=== PATIENT | female | born 1975 | race Caucasian/White ===

== ENCOUNTER 2020-09-14 14:45 | Emergency (ER) | payer OTHER ==
[2020-09-14 15:08] LABS: BILIRUBIN,URINE NEGATIVE (NEGATIVE); CLARITY,URINE CLEAR (CLEAR); GLUCOSE, URINE (UA) NEGATIVE (NEGATIVE); KETONES,URINE (UA) NEGATIVE (NEGATIVE); LEUKOCYTE ESTERASE, URINE NEGATIVE (NEGATIVE); NITRITE,URINE NEGATIVE (NEGATIVE); OCCULT BLOOD,URINE LARGE (NEGATIVE); PROTEIN,URINE NEGATIVE (NEGATIVE); UROBILINOGEN,URINE 0.2 (NORMAL) E.U./dL (NORMAL)
[2020-09-14 15:09] LABS: HCG UR QUAL NEGATIVE
[2020-09-14 15:20] LABS: BACTERIA,URINE Few /HPF (None Seen); CASTS, URINE 0-2 Hyaline Casts /LPF; EPITHELIAL CELLS,UR RARE Transitional /HPF (<= Few); MUCUS,URINE Marked Strands; RBC,URINE TNTC /HPF (0-5); SQUAMOUS EPITHELIAL CELL,UR FEW Squamous (<= Few); YEAST,URINE PRESENT
--- NOTE | 2020-09-14 15:27 | ED Physician Documentation ---
History of Present Illness - Stated complaint Stated Complaint: ABD PX - Chief complaint Chief Complaint: Abd Pain - Additonal information Additional information: 45-year-old female presents emergency department for acute left-sided belly kati n. Began in the left flank and migrated down to the pelvis. It was sharp unrelenting and caused her to cry. By the time she arrived to the emergency department the pain is mostly subsided. No fevers no vomiting. Positive nausea. No changes in bowel or bladder habits. pt reports a warm feeling inher bladder and urgency without dysuria She does report a history of remote exploratory surgery about 15 years ago which resulted in findings of a small bowel infection. since then she often has periumbilical pain as well as swelling in her abdomen with valsalva. her pcp is evaluating for a "hernia" Review of Systems Constitutional: reports: Reviewed and negative Ears: reports: Reviewed and negative Nose: reports: Reviewed and negative Throat: reports: Reviewed and negative Cardiac: reports: Reviewed and negative Respiratory: reports: Reviewed and negative GI: reports: Abdominal Pain, Nausea. denies: Vomiting, Constipation, Diarrhea, Hematemesis, Bloody / black stool : reports: Reviewed and negative Skin: reports: Reviewed and negative Musculoskeletal: reports: Reviewed and negative Neurologic: reports: Reviewed and negative PD PAST MEDICAL HISTORY - Past Medical History Past Medical History: Yes Endocrine/Autoimmune: Type 2 diabetes - Past Surgical History Past Surgical History: Yes General: Other - Present Medications Home Medications: Ambulatory Orders Medication Instructions Recorded Confirmed Ibuprofen [Motrin] 600 mg PO Q6H PRN #30 tab 09/14/20 Lisdexamfetamine Dimesylate 1 tab PO DAILY 09/14/20 09/14/20 [Vyvanse] buPROPion HCL [Bupropion HCl Sr] 1 tab PO DAILY 09/14/20 09/14/20 - Allergies Allergies/Adverse Reactions: Allergies Allergy/AdvReac Type Severity Reaction Status Date / Time Sulfa (Sulfonamide Allergy Rash Verified 09/14/20 14:52 Antibiotics) - Social History Does the pt smoke?: No Smoking Status: Never smoker Does the pt drink ETOH?: No Does the pt have substance abuse?: No Substance Use and Type: Marijuana - Immunizations Immunizations are current?: Yes PD ED PE NORMAL - General General: Alert and oriented X 3, No acute distress - HEENT HEENT: PERRL - Cardiac Cardiac: RRR, No murmur - Respiratory Respiratory: Clear bilaterally - Abdomen Abdomen: Normal bowel sounds, Soft, Non tender, Non distended, Other (midlien vertical hernia appreciated with valsalva) - Back Back: No CVA TTP Results - Vitals Vitals: Vital Signs - 24 hr 09/14/20 09/14/20 09/14/20 14:50 15:28 16:03 Temperature 36.3 C L Heart Rate 90 87 93 Respiratory 20 16 16 Rate Blood Pressure 149/95 H 142/90 H 136/83 H O2 Saturation 99 97 98 Oxygen O2 Source Room air - Labs Labs: Laboratory Tests 09/14/20 09/14/20 09/14/20 14:52 15:23 15:23 WBC 12.6 H RBC 5.02 Hgb 13.8 Hct 41.7 MCV 83.1 MCH 27.5 MCHC 33.1 RDW 13.5 Plt Count 371 MPV 8.4 Neut # (Auto) 9.7 H Lymph # (Auto) 2.2 [place] # (Auto) 0.5 Eos # (Auto) 0.1 Baso # (Auto) 0.1 Absolute Nucleated RBC 0.00 Nucleated RBC % 0.0 Sodium 135 Potassium 3.9 Chloride 100 L Carbon Dioxide 25 Anion Gap 10.0 BUN 14 Creatinine 0.7 Estimated GFR (MDRD) 90 Glucose 227 H Calcium 9.9 Total Bilirubin 0.6 AST 14 ALT 18 Alkaline Phosphatase 83 Total Protein 7.6 Albumin 4.4 Globulin 3.2 Albumin/Globulin Ratio 1.4 Lipase 25 Urine Color YELLOW Urine Clarity CLEAR Urine pH 6.0 Ur Specific [place] 1.025 Urine Protein NEGATIVE Urine Glucose (UA) NEGATIVE Urine Ketones NEGATIVE Urine Occult Blood LARGE H Urine Nitrite NEGATIVE Urine Bilirubin NEGATIVE Urine Urobilinogen 0.2 (NORMAL) Ur Leukocyte Esterase NEGATIVE Urine RBC TNTC H Urine WBC 0-3 Ur Epithelial Cells RARE Transitional Ur Squamous Epith Cells FEW Squamous Urine Bacteria Few Urine Casts 0-2 Hyaline Casts Urine Mucus Marked Strands Urine Yeast PRESENT Ur Microscopic Review INDICATED Urine Culture Comments NOT INDICATED Urine HCG, Qual NEGATIVE - Rads (name of study) CT abd/pelvis Radiology: Final report received (3 mm mildly obstructing left distal ureter stone visualized in the left UVJ. Mild associated hydroureter with minimal periureteral stranding. Nonobstructing bilateral nephroliths. 4.1 cm fat- containing umbilical hernia. 4 mm right middle lobe lung nodule.) PD MEDICAL DECISION MAKING - ED course Complexity details: reviewed results, re-evaluated patient, considered differential, d/w patient ED course: 45-year-old female presents the emergency department for evaluation of acute left-sided abdominal pain that radiated from flank to pelvic area. Does have findings of hematuria. Normal renal function. mild leukocytosis. liekly marginalization or stress reaction. History is most suspicious for acute renal colic. Non-contrast CT of the abdomen is pending. CT of the abdomen does show a mildly obstructing left UVJ stone with mild hydroureter. Patient's pain was markedly improved following Toradol in the ER. We will make a referral for her to be seen with Dr. Lord in [place]. Recommend ibuprofen for analgesia There is an incidental finding of a 4 mm right pulmonary nodule. Repeat imaging in 6 months recommended. This finding was discussed with patient she will address with her primary care provider. Emergent return precautions discussed Departure - Departure Disposition: Home, Self Care Clinical Impression: Nephrolithiasis, Hydroureter on left, Pulmonary nodule Condition: Stable Record reviewed to determine appropriate education?: Yes Instructions: ED Stone Renal Passed Follow-Up: Salbador Lord MD [Provider Admit Priv/Credential] - BRIANNA MEJIAS ARNP [Primary Care Provider] - Prescriptions: Ibuprofen [Motrin] 600 mg PO Q6H PRN #30 tab PRN Reason: Pain Comments: Khadijah you were passing a kidney stone on your left side. Though the CAT scan shows that you have kidney stones in both of your kidneys. These are all small enough that we would typically expect them to pass. Please take the ibuprofen with food 2-3 times a day for pain. I would like you to schedule follow-up with Dr. Lord the urologist in [place]. Please also discuss this ED visit with your primary care doctor. The CT scan did show a 4 mm right pulmonary nodule. This is most likely a benign finding however the recommendation is for repeat imaging in 6 months.
[2020-09-14 15:28] LABS: BASOPHILS # (AUTO) 0.1 10^3/uL (0.0-0.1); BASOPHILS % (AUTO) 0.6 %; EOSINOPHILS # (AUTO) 0.1 10^3/uL (0.0-0.7); EOSINOPHILS % (AUTO) 0.9 %; HGB - HEMOGLOBIN 13.8 g/dL (12.0-16.0); LYMPHOCYTES # (AUTO) 2.2 10^3/uL (1.5-3.5); LYMPHOCYTES % (AUTO) 17.1 %; MEAN CORPUSCULAR HEMOGLOBIN 27.5 pg (27.0-31.0); MEAN CORPUSCULAR HGB CONC 33.1 g/dL (32.0-36.0); MEAN CORPUSCULAR VOLUME 83.1 fL (81.0-99.0); MEAN PLATELET VOLUME 8.4 fL (7.9-10.8); MONOCYTES # (AUTO) 0.5 10^3/uL (0.0-1.0); NEUTROPHILS # (AUTO) 9.7 10^3/uL (1.5-6.6); NEUTROPHILS % (AUTO) 77.2 %; PLT - PLATELET COUNT 371 10^3/uL (130-450); RED BLOOD COUNT 5.02 10^6/uL (4.20-5.40); RED CELL DISTRIBUTION WIDTH 13.5 % (12.0-15.0); WHITE BLOOD COUNT 12.6 x10^3/uL (4.8-10.8)
[2020-09-14 15:44] LABS: ALBUMIN 4.4 g/dL (3.2-5.5); ALBUMIN/GLOBULIN RATIO 1.4 (1.0-2.2); BILIRUBIN,TOTAL 0.6 mg/dL (0.2-1.0); CALCIUM 9.9 mg/dL (8.5-10.3); CREATININE 0.7 mg/dL (0.4-1.0); TOTAL PROTEIN 7.6 g/dL (6.7-8.2)
[2020-09-14] MEDS ORDERED: ONDANSETRON 4 MG/2 ML VIAL IVP STA (15:50)
[2020-09-14] MEDS ORDERED: KETOROLAC 60 MG/2 ML VIAL IM STA (16:34)
[2020-09-14 18:10] VITALS: BP 137/99
--- NOTE | 2020-09-16 03:28 | CT Report ---
PROCEDURE: Abdomen/Pelvis WO INDICATIONS: LEFT FLANK PAIN, HEMATURIA, ? RENAL COLI TECHNIQUE: Noncontrast 5 mm thick sections acquired from the diaphragms to the symphysis. 5 mm coronal and sagi ttal reformats were then performed. For radiation dose reduction, the following was used: automated exposure control, adjustment of mA and/or kV according to patient size. COMPARISON: None. FINDINGS: Image quality: Excellent. ABDOMEN: Lung bases: 4 mm right middle lobe nodule seen on image 16, series 4. Lung bases are otherwise clear. Heart size is normal. Solid organs: Liver and spleen are normal in size. Gallbladder is unremarkable. Pancreas is normal in contours. No right-sided adrenal nodules. There is a 1.6 cm left adrenal nodule measuring approx imately 30 Hounsfield units. Kidneys are normal in size. No right-sided hydronephrosis. There are no nobstructing right-sided renal stones measuring approximately 3 mm in size. Faint densities involving the bilateral renal medulla. 2 mm left-sided renal calcifications. There is a 3 mm distal left urete ral stone noted at the ureterovesicular junction with minimal hydroureter as well as minimal periuret eral stranding. No philly hydronephrosis of the left kidney. No perinephric stranding on either side. Peritoneum and bowel: Unenhanced bowel loops demonstrate normal wall thickness and caliber. Normal a ppendix. Scattered colonic diverticulosis without evidence for acute inflammation. No free fluid or a ir. Nodes and vessels: No retroperitoneal or mesenteric adenopathy by size criteria. Aorta and inferior vena cava are normal in caliber. Miscellaneous: There is a 4.1 x 3.9 cm fat-containing umbilical hernia with the neck of the defect me asuring approximately 2.2 cm in diameter. PELVIS: Genitourinary: Bladder wall thickness is normal. Miscellaneous: No inguinal hernias or adenopathy. Bones: No suspicious bony lesions. No acute vertebral body compression fractures. IMPRESSION: 1. There is a 3 mm mildly obstructing distal left ureteral stone visualized at the left ureterovesicu lar junction. There is mild associated sided hydroureter with minimal periureteral stranding. Finding s may represent inflammatory changes from passage of the stone versus possible infectious uropathy. C linical and laboratory correlation recommended. 2. Nonobstructing bilateral nephroliths measuring up to 3 mm on the right and 2 mm on the left. There are also findings suggesting mild medullary nephrocalcinosis. 3. Scattered colonic diverticulosis without acute diverticulitis. 4. A 4.1 cm fat-containing umbilical hernia without evidence for acute inflammation. 5. There is a 4 mm right middle lobe nodule which most likely is benign. Recommend follow-up low-dose chest CT in 12 months to document continued stability. 6. Normal appendix. 7. There is a 1.6 cm left adrenal nodule which is incompletely characterized. Recommend further evalu ation with multi phase CT or MRI of the abdomen using adrenal protocol. Reviewed by: Reese Coley MD on 09/14/2020 4:21 PM PST Approved by: Reese Coley MD on 09/14/2020 4:21 PM PST Station ID: [id number]
== END 2020-09-14 18:26 | disposition home or self-care (01) ==
LOC: ED 14:45
DX: N20.1 Calculus of ureter (principal); N13.4 Hydroureter; K42.9 Umbilical hernia without obstruction or gangrene; R91.1 Solitary pulmonary nodule; E11.9 Type 2 diabetes mellitus without complications
CPT/HCPCS: 36415; 80053; 81001; 81003; 81025; 83690; 85025; 87086; 96374; 99283

== ENCOUNTER 2021-05-26 14:43 | Outpatient (CLI) | payer OTHER ==
--- NOTE | 2021-05-26 16:26 | XRAY Report ---
PROCEDURE: Shoulder 3 View RT INDICATIONS: PAIN OF RIGHT SHOULDER JOINT TECHNIQUE: 3 views of the shoulder were acquired. COMPARISON: None. FINDINGS: Bones: No fractures or dislocations. No suspicious bony lesions. Visualized ribs appear intact. Soft tissues: No suspicious soft tissue calcifications. IMPRESSION: No acute finding. Reviewed by: Thierry Mckinney MD on 05/26/2021 4:25 PM PDT Approved by: Thierry Mckinney MD on 05/26/2021 4:25 PM PDT Station ID: [id number]
--- NOTE | 2021-05-26 16:27 | XRAY Report ---
PROCEDURE: Thoracic Spine 2 View INDICATIONS: NECK PAIN TECHNIQUE: 3 views of the thoracic spine were acquired. COMPARISON: None. FINDINGS: Bones: No fractures or dislocations. No suspicious bony lesions. Scattered multilevel endplate spur ring and diffuse facet arthropathy. . IMPRESSION: Mild spurring and sclerosis. No fracture Reviewed by: Mark Tomlinson MD on 05/26/2021 4:25 PM PDT Approved by: Mark Tomlinson MD on 05/26/2021 4:25 PM PDT Station ID: [id number]
--- NOTE | 2021-05-26 17:29 | XRAY Report ---
PROCEDURE: Cervical Spine 2 View INDICATIONS: NECK PAIN TECHNIQUE: 3 view(s) of the cervical spine were acquired. COMPARISON: None. FINDINGS: Bones: No fractures or dislocations to the T1 level. The lateral masses of C1 appear intact on the odontoid view. No suspicious bony lesions. There is reversal of normal cervical lordosis. Disc spac e narrowing to osteophytes noted at C4-5 and C5-6 and C6-7. Vertebral body height and alignment is ma intained. Normal bone mineralization and craniovertebral relationships. Soft tissues: No prevertebral soft tissue swelling. IMPRESSION: Multilevel degenerative disease and reversal of the normal cervical lordosis. No fracture or malalignment. Reviewed by: Ghulam Cramer MD on 05/26/2021 4:28 PM AKSHAT Approved by: Ghulam Cramer MD on 05/26/2021 4:28 PM AKSHAT Station ID: [id number]
== END 2021-05-26 14:44 | disposition home or self-care (01) ==
LOC: DI.S 14:43
PROVIDERS: ATTEND Nurse Practitioner Family
DX: M25.511 Pain in right shoulder (principal); M25.78 Osteophyte, vertebrae; M48.02 Spinal stenosis, cervical region

== ENCOUNTER 2021-09-05 08:00 | Outpatient (CLI) | payer OTHER | END 2021-09-05 23:59 | LOC: LAB.S 08:00 | PROVIDERS: ATTEND Emergency Medicine | DX: L72.3 Sebaceous cyst (principal) | CPT/HCPCS: 87070; 87181; 87205 ==

== ENCOUNTER → 2023-04-13 | Outpatient (CLI) | payer OTHER | END | disposition short-term general hospital (02) | LOC: EMS 05:22 | DX: R10.31 Right lower quadrant pain (principal); R10.32 Left lower quadrant pain; R11.0 Nausea | CPT/HCPCS: A0425; A0427 ==

== ENCOUNTER 2023-08-30 22:51 | Outpatient (CLI) | payer OTHER | END 2023-08-30 22:52 | disposition EMS.NT | LOC: EMS 22:51 | DX: R41.0 Disorientation, unspecified (principal) ==